=== PATIENT | female | born 1940 | race African-American/Black ===

== ENCOUNTER 2017-12-13 13:33 | Inpatient (IN) | payer OTHER, BC ==
[2017-12-13 15:38] LABS: ADD MAN DIFF? NO
[2017-12-13 15:41] LABS: ADD UMIC YES; UR ASCORBIC ACID NEGATIVE (NEGATIVE); UR BILIRUBIN (Dip) NEGATIVE (NEGATIVE); UR BLOOD (Dip) 2+ mg/dL (NEGATIVE); UR BUDDING YEAST FEW /HPF (NONE SEEN); UR CLARITY SLIGHTLY CLOUDY (CLEAR); UR COLOR AMBER (YELLOW); UR GLUCOSE (Dip) NEGATIVE (NEGATIVE); UR KETONES (Dip) NEGATIVE (NEGATIVE); UR LEUKOCYTE ESTERASE (Dip) 2+ Leu/ul (NEGATIVE); UR NITRITE (Dip) NEGATIVE (NEGATIVE); UR RBC 10 /HPF (0-5); UR SPECIFIC GRAVITY (Dip) 1.015 (1.003-1.030); UR SQUAMOUS EPITHELIAL CELL FEW /HPF (FEW); UR TOTAL PROTEIN (Dip) NEGATIVE (NEGATIVE); UR UROBILINOGEN (Dip) 1+ mg/dL (NEGATIVE); UR WBC 98 /HPF (0-5)
[2017-12-13 15:43] LABS: ABNORMAL IP MESSAGE 1; BASOPHILS % 0.3 % (0.0-2.0); EOSINOPHILS # 0.1 10^3/ul (0.0-0.5); EOSINOPHILS % 1.5 % (0.0-7.0); HEMATOCRIT 28.3 % (37.0-47.0); HEMOGLOBIN 9.3 g/dl (12.0-16.0); LYMPHOCYTES # 0.6 10^3/ul (0.8-2.9); LYMPHOCYTES % 14.8 % (15.0-51.0); MEAN CORPUSCULAR HEMOGLOBIN 33.2 pg (29.0-33.0); MEAN CORPUSCULAR HGB CONC 32.9 g/dl (32.0-37.0); MEAN CORPUSCULAR VOLUME 101.1 fl (82.0-101.0); MEAN PLATELET VOLUME 10.9 fl (7.4-10.4); MONOCYTE # 0.4 10^3/ul (0.3-0.9); MONOCYTES % 10.5 % (0.0-11.0); NEUTROPHIL # 2.8 10^3/ul (1.6-7.5); NEUTROPHILS % 71.6 % (39.0-77.0); NUCLEATED RED BLOOD CELLS # 0.2 10^3/ul (0.0-0.0); NUCLEATED RED BLOOD CELLS% 5.1 /100WBC (0.0-0.0); PLATELET COUNT 198 10^3/UL (140-415); RED CELL DISTRIBUTION WIDTH 19.7 % (11.5-14.5)
[2017-12-13 15:43] LABS: WHITE BLOOD COUNT 3.9 10^3/ul (4.8-10.8)
[2017-12-13 15:47] LABS: POSITIVE DIFF @See below
[2017-12-13 16:00] LABS: ALANINE AMINOTRANSFERASE 83 IU/L (13-69); ALBUMIN 3.4 g/dl (3.3-4.9); ALBUMIN/GLOBULIN RATIO 0.97; ALKALINE PHOSPHATASE 553 IU/L (42-121); ANION GAP 14 (8-16); ASPARTATE AMINO TRANSFERASE 148 IU/L (15-46); BILIRUBIN,INDIRECT 0.8 mg/dl (0-1.1); BILIRUBIN,TOTAL 1.5 mg/dl (0.2-1.3); BLOOD UREA NITROGEN 22 mg/dl (7-20); CALCIUM 8.8 mg/dl (8.4-10.2); CARBON DIOXIDE 22 mmol/L (21-31); CHLORIDE 103 mmol/L (97-110); CREATININE 3.23 mg/dl (0.44-1.00); GLUCOSE 89 mg/dl (70-220); LIPASE 70 U/L (23-300); POTASSIUM 4.3 mmol/L (3.5-5.1); SODIUM 135 mmol/L (135-144); TOTAL PROTEIN 6.9 g/dl (6.1-8.1)
[2017-12-13 16:12] LABS: B-TYPE NATRIURETIC PEPTIDE 680 PG/ML (0-450); TROPONIN-I < 0.010 ng/ml (0.000-0.120)
[2017-12-13 16:17] LABS: INR 1.17; PROTIME 15.1 Sec (11.9-14.9); PT RATIO 1.2
[2017-12-13 16:18] LABS: PARTIAL THROMBOPLASTIN TIME 25.5 Sec (25.0-35.0)
[2017-12-13] MEDS ORDERED: ALBUTEROL/IPRATROPIUM (NEB) 3 ML AMP HHN (16:30)
[2017-12-13] MEDS: CEFTRIAXONE 1 GM/50 ML (PMX) 50 ML IVPB (16:51)
[2017-12-13] MEDS ORDERED: LORAZEPAM 0.5 MG TAB PO (17:00)
[2017-12-13] MEDS ORDERED: NACL 0.9% 3 ML SYG IV (17:00)
[2017-12-13] MEDS ORDERED: ACETAMINOPHEN 325 MG TAB PO (17:00)
[2017-12-13] MEDS ORDERED: BISACODYL (EC) 5 MG TAB PO (17:00)
[2017-12-13] MEDS ORDERED: hydrALAzine 20 MG INJ IV (17:00)
[2017-12-13] MEDS ORDERED: morphine 2 MG INJ IV (17:00)
[2017-12-13] MEDS ORDERED: DOCUSATE SODIUM 100 MG CAP PO (17:00)
[2017-12-13] MEDS ORDERED: MAGNESIUM HYDROXIDE 30ML CUP PO (17:00)
[2017-12-13] MEDS ORDERED: HYDROCODONE/APAP (5/325) TAB PO (17:00)
[2017-12-13 17:28] LABS: ADD UMIC YES; UR ASCORBIC ACID NEGATIVE (NEGATIVE); UR BACTERIA FEW /HPF (NONE SEEN); UR BILIRUBIN (Dip) NEGATIVE (NEGATIVE); UR BLOOD (Dip) 2+ mg/dL (NEGATIVE); UR BUDDING YEAST MODERATE /HPF (NONE SEEN); UR CLARITY CLOUDY (CLEAR); UR COLOR AMBER (YELLOW); UR GLUCOSE (Dip) NEGATIVE (NEGATIVE); UR KETONES (Dip) NEGATIVE (NEGATIVE); UR LEUKOCYTE ESTERASE (Dip) 3+ Leu/ul (NEGATIVE); UR NITRITE (Dip) NEGATIVE (NEGATIVE); UR RBC 10 /HPF (0-5); UR SPECIFIC GRAVITY (Dip) 1.015 (1.003-1.030); UR SQUAMOUS EPITHELIAL CELL FEW /HPF (FEW); UR TOTAL PROTEIN (Dip) 1+ mg/dl (NEGATIVE); UR UROBILINOGEN (Dip) NEGATIVE (NEGATIVE); UR WBC 50 /HPF (0-5)
[2017-12-13] MEDS: SOD CHLORIDE 0.9% 1,000 ML IV (18:33)
[2017-12-13] MEDS: PIPER-TAZO 2.25 GM (PMX) 50 ML IVPB (18:34)
[2017-12-13] MEDS: ALBUTEROL/IPRATROPIUM (NEB) 3 ML AMP HHN (19:43)
[2017-12-13] MEDS: BUDESONIDE (NEB) 0.5MG/2ML AMP HHN (19:43)
[2017-12-13] MEDS ORDERED: traZODone 50 MG TAB PO (21:00)
[2017-12-13] MEDS ORDERED: ATORVASTATIN 10 MG TAB PO (21:00)
[2017-12-13] MEDS ORDERED: METOPROLOL 25 MG TAB PO (21:00)
[2017-12-13 21:17] LABS: FREE T4 (FREE THYROXINE) 1.16 ng/dl (0.78-2.44)
[2017-12-13] MEDS: MONTELUKAST 10 MG TAB PO (21:22)
[2017-12-13] MEDS: HEPARIN 5,000 UNIT/0.5 ML VIAL SC (21:25)
[2017-12-14] MEDS: PIPER-TAZO 2.25 GM (PMX) 50 ML IVPB ×3 (00:42→15:26)
[2017-12-14] MEDS: SOD CHLORIDE 0.9% 1,000 ML IV ×3 (02:35→22:35)
[2017-12-14 05:22] LABS: HEMATOCRIT 26.7 % (37.0-47.0); HEMOGLOBIN 8.7 g/dl (12.0-16.0); MEAN CORPUSCULAR HGB CONC 32.6 g/dl (32.0-37.0); MEAN CORPUSCULAR VOLUME 101.1 fl (82.0-101.0); MEAN PLATELET VOLUME 11.1 fl (7.4-10.4); NUCLEATED RED BLOOD CELLS% 6.3 /100WBC (0.0-0.0); PLATELET COUNT 172 10^3/UL (140-415); RED BLOOD COUNT 2.64 10^6/ul (4.20-5.40); RED CELL DISTRIBUTION WIDTH 19.7 % (11.5-14.5)
[2017-12-14 05:22] LABS: WHITE BLOOD COUNT 3.8 10^3/ul (4.8-10.8)
[2017-12-14 05:28] LABS: POSITIVE DIFF @See below
[2017-12-14 05:29] LABS: ADD MAN DIFF? YES
[2017-12-14 05:35] LABS: HEMOGLOBIN A1C 5.1 % (0-5.9)
[2017-12-14 05:49] LABS: ALANINE AMINOTRANSFERASE 77 IU/L (13-69); ALBUMIN 3.2 g/dl (3.3-4.9); ALKALINE PHOSPHATASE 495 IU/L (42-121); ANION GAP 14 (8-16); ASPARTATE AMINO TRANSFERASE 133 IU/L (15-46); BILIRUBIN,INDIRECT 0.7 mg/dl (0-1.1); BILIRUBIN,TOTAL 1.3 mg/dl (0.2-1.3); BLOOD UREA NITROGEN 23 mg/dl (7-20); CALCIUM 8.4 mg/dl (8.4-10.2); CARBON DIOXIDE 20 mmol/L (21-31); CHLORIDE 106 mmol/L (97-110); CHOL/HDL RATIO 4.2 RATIO; CHOLESTEROL 269 mg/dl (100-200); CREATININE 3.46 mg/dl (0.44-1.00); GLUCOSE 84 mg/dl (70-220); HDL CHOLESTEROL 64 mg/dl (33-92); LDL CHOLESTEROL,CALCULATED 185 mg/dl; MAGNESIUM 2.1 mg/dl (1.7-2.5); POTASSIUM 4.3 mmol/L (3.5-5.1); SODIUM 136 mmol/L (135-144); TOTAL PROTEIN 6.4 g/dl (6.1-8.1); TRIGLYCERIDES 101 mg/dl (0-149)
[2017-12-14] MEDS: PANTOPRAZOLE (EC) 40 MG TAB PO (06:00)
[2017-12-14] MEDS: BUDESONIDE (NEB) 0.5MG/2ML AMP HHN ×2 (08:10→19:45)
[2017-12-14] MEDS: ALBUTEROL/IPRATROPIUM (NEB) 3 ML AMP HHN ×3 (08:10→19:45)
[2017-12-14] MEDS ORDERED: SERTRALINE 100 MG TAB PO (09:00)
[2017-12-14] MEDS: AMLODIPINE 5 MG TAB PO (09:00)
[2017-12-14] MEDS ORDERED: AMLODIPINE 10 MG TAB PO ×2 (09:00)
[2017-12-14] MEDS: HEPARIN 5,000 UNIT/0.5 ML VIAL SC ×2 (09:04→20:58)
[2017-12-14] MEDS: ASPIRIN (EC) 81 MG TAB PO (09:07)
[2017-12-14 09:27] LABS: ANISOCYTOSIS 3+ (0-0); BAND NEUTROPHILS #M 0.7 10^3/ul (0.0-0.6); BAND NEUTROPHILS % (M) 20 % (0-4); EOSINOPHILS % (M) 3 % (0-7); ERYTHROBLAST% (NRBC) (M) 10 % (0-0); GIANT THROMBO% (M) 6 % (0-0); LYMPHOCYTES #M 0.7 10^3/ul (0.8-2.9); LYMPHOCYTES % (M) 20 % (15-51); MONOCYTE #M 0.3 10^3/ul (0.3-0.9); MONOCYTES % (M) 9 % (0-11); PLATELET ESTIMATE NORMAL; SEG NEUT #M 1.9 10^3/ul (1.6-7.5); SEGMENTED NEUTROPHILS (M) % 48 % (39-77); SMUDGE%M 10 % (0-0)
[2017-12-14] MEDS: ANASTROZOLE 1 MG TAB PO (10:02)
[2017-12-14] MEDS: LETROZOLE 2.5 MG TAB PO (10:02)
[2017-12-14] MEDS: MONTELUKAST 10 MG TAB PO (20:54)
[2017-12-14] MEDS: CEFTRIAXONE 1 GM/50 ML (PMX) 50 ML IVPB (21:10)
[2017-12-15] MEDS: SOD CHLORIDE 0.9% 1,000 ML IV ×4 (02:49→23:24)
[2017-12-15 05:31] LABS: ADD MAN DIFF? NO
[2017-12-15 05:37] LABS: WHITE BLOOD COUNT 4.2 10^3/ul (4.8-10.8)
[2017-12-15 05:37] LABS: BASOPHILS % 0.2 % (0.0-2.0); EOSINOPHILS # 0.1 10^3/ul (0.0-0.5); EOSINOPHILS % 1.9 % (0.0-7.0); HEMATOCRIT 24.1 % (37.0-47.0); HEMOGLOBIN 8.1 g/dl (12.0-16.0); LYMPHOCYTES # 0.8 10^3/ul (0.8-2.9); LYMPHOCYTES % 17.7 % (15.0-51.0); MEAN CORPUSCULAR HEMOGLOBIN 33.5 pg (29.0-33.0); MEAN CORPUSCULAR HGB CONC 33.6 g/dl (32.0-37.0); MEAN CORPUSCULAR VOLUME 99.6 fl (82.0-101.0); MEAN PLATELET VOLUME 11.2 fl (7.4-10.4); MONOCYTE # 0.5 10^3/ul (0.3-0.9); MONOCYTES % 12.3 % (0.0-11.0); NEUTROPHIL # 2.8 10^3/ul (1.6-7.5); NEUTROPHILS % 66.5 % (39.0-77.0); NUCLEATED RED BLOOD CELLS # 0.3 10^3/ul (0.0-0.0); NUCLEATED RED BLOOD CELLS% 6.1 /100WBC (0.0-0.0); PLATELET COUNT 170 10^3/UL (140-415); RED BLOOD COUNT 2.42 10^6/ul (4.20-5.40); RED CELL DISTRIBUTION WIDTH 19.2 % (11.5-14.5)
[2017-12-15] MEDS: PANTOPRAZOLE (EC) 40 MG TAB PO (06:00)
[2017-12-15 06:03] LABS: ALANINE AMINOTRANSFERASE 65 IU/L (13-69); ALBUMIN 2.9 g/dl (3.3-4.9); ALBUMIN/GLOBULIN RATIO 0.93; ALKALINE PHOSPHATASE 457 IU/L (42-121); ANION GAP 11 (8-16); ASPARTATE AMINO TRANSFERASE 102 IU/L (15-46); BILIRUBIN,INDIRECT 0.6 mg/dl (0-1.1); BILIRUBIN,TOTAL 0.7 mg/dl (0.2-1.3); BLOOD UREA NITROGEN 23 mg/dl (7-20); CARBON DIOXIDE 22 mmol/L (21-31); CHLORIDE 107 mmol/L (97-110); CREATININE 3.03 mg/dl (0.44-1.00); GLUCOSE 122 mg/dl (70-220); SODIUM 136 mmol/L (135-144)
[2017-12-15] MEDS: LEVOTHYROXINE 100 MCG TAB PO (07:00)
[2017-12-15 07:27] LABS: PHOSPHORUS 3.8 mg/dl (2.5-4.9)
[2017-12-15] MEDS: ALBUTEROL/IPRATROPIUM (NEB) 3 ML AMP HHN ×3 (08:00→19:54)
[2017-12-15] MEDS: BUDESONIDE (NEB) 0.5MG/2ML AMP HHN ×2 (08:07→19:54)
[2017-12-15] MEDS: AMLODIPINE 5 MG TAB PO (09:00)
[2017-12-15] MEDS: ASPIRIN (EC) 81 MG TAB PO (10:11)
[2017-12-15] MEDS: FUROSEMIDE 40 MG INJ IV (10:11)
[2017-12-15] MEDS: ONDANSETRON 4 MG INJ IV (10:11)
[2017-12-15] MEDS: LETROZOLE 2.5 MG TAB PO (10:12)
[2017-12-15] MEDS: ANASTROZOLE 1 MG TAB PO (10:13)
[2017-12-15] MEDS: HEPARIN 5,000 UNIT/0.5 ML VIAL SC ×2 (10:13→21:08)
[2017-12-15] MEDS: FLUCONAZOLE 200 MG (PMX) 100 ML IVPB (13:38)
[2017-12-15] MEDS ORDERED: morphine LIQ (10 MG/5 ML) CUP PO (18:30)
[2017-12-15] MEDS: MONTELUKAST 10 MG TAB PO (21:00)
[2017-12-15] MEDS: CEFTRIAXONE 1 GM/50 ML (PMX) 50 ML IVPB (21:09)
[2017-12-16] MEDS: PANTOPRAZOLE (EC) 40 MG TAB PO (05:05)
[2017-12-16 05:33] LABS: ADD MAN DIFF? NO
[2017-12-16 05:38] LABS: WHITE BLOOD COUNT 4.6 10^3/ul (4.8-10.8)
[2017-12-16 05:38] LABS: BASOPHILS % 0.4 % (0.0-2.0); EOSINOPHILS # 0.1 10^3/ul (0.0-0.5); HEMATOCRIT 26.7 % (37.0-47.0); LYMPHOCYTES % 21.9 % (15.0-51.0); MEAN CORPUSCULAR HEMOGLOBIN 33.3 pg (29.0-33.0); MEAN CORPUSCULAR HGB CONC 33.7 g/dl (32.0-37.0); MEAN CORPUSCULAR VOLUME 98.9 fl (82.0-101.0); MEAN PLATELET VOLUME 11.2 fl (7.4-10.4); MONOCYTE # 0.5 10^3/ul (0.3-0.9); MONOCYTES % 9.8 % (0.0-11.0); NEUTROPHIL # 2.9 10^3/ul (1.6-7.5); NEUTROPHILS % 63.3 % (39.0-77.0); NUCLEATED RED BLOOD CELLS # 0.3 10^3/ul (0.0-0.0); NUCLEATED RED BLOOD CELLS% 6.3 /100WBC (0.0-0.0); PLATELET COUNT 168 10^3/UL (140-415); RED CELL DISTRIBUTION WIDTH 19.4 % (11.5-14.5)
[2017-12-16 06:03] LABS: ALANINE AMINOTRANSFERASE 60 IU/L (13-69); ALBUMIN 2.9 g/dl (3.3-4.9); ALBUMIN/GLOBULIN RATIO 0.87; ALKALINE PHOSPHATASE 472 IU/L (42-121); ANION GAP 14 (8-16); ASPARTATE AMINO TRANSFERASE 95 IU/L (15-46); BILIRUBIN,INDIRECT 0.6 mg/dl (0-1.1); BILIRUBIN,TOTAL 0.6 mg/dl (0.2-1.3); BLOOD UREA NITROGEN 21 mg/dl (7-20); CALCIUM 8.3 mg/dl (8.4-10.2); CARBON DIOXIDE 22 mmol/L (21-31); CHLORIDE 107 mmol/L (97-110); GLUCOSE 102 mg/dl (70-220); MAGNESIUM 1.8 mg/dl (1.7-2.5); POTASSIUM 3.9 mmol/L (3.5-5.1); SODIUM 139 mmol/L (135-144); TOTAL PROTEIN 6.2 g/dl (6.1-8.1)
[2017-12-16] MEDS: LEVOTHYROXINE 100 MCG TAB PO (06:56)
[2017-12-16] MEDS ORDERED: LIDOCAINE 2% (SDV) 5 ML INJ (07:00)
[2017-12-16] MEDS: ALBUTEROL/IPRATROPIUM (NEB) 3 ML AMP HHN ×3 (08:00→19:27)
[2017-12-16] MEDS: BUDESONIDE (NEB) 0.5MG/2ML AMP HHN ×2 (08:05→19:27)
[2017-12-16] MEDS: ASPIRIN (EC) 81 MG TAB PO ×2 (10:26→10:34)
[2017-12-16] MEDS: LETROZOLE 2.5 MG TAB PO (10:27)
[2017-12-16] MEDS: ANASTROZOLE 1 MG TAB PO (10:27)
[2017-12-16] MEDS: AMLODIPINE 5 MG TAB PO (10:28)
[2017-12-16] MEDS: HEPARIN 5,000 UNIT/0.5 ML VIAL SC ×2 (10:28→20:47)
[2017-12-16] MEDS: SOD CHLORIDE 0.9% 1,000 ML IV (12:55)
[2017-12-16] MEDS: MONTELUKAST 10 MG TAB PO ×2 (20:46→20:55)
[2017-12-16] MEDS: CEFTRIAXONE 1 GM/50 ML (PMX) 50 ML IVPB (20:46)
[2017-12-16] MEDS: ONDANSETRON 4 MG INJ IV (20:51)
[2017-12-16] MEDS: morphine 2 MG INJ IV (21:29)
[2017-12-17] MEDS: SOD CHLORIDE 0.9% 1,000 ML IV ×2 (00:33→09:39)
[2017-12-17] MEDS: PANTOPRAZOLE (EC) 40 MG TAB PO (06:21)
[2017-12-17] MEDS: LEVOTHYROXINE 100 MCG TAB PO (06:21)
[2017-12-17 06:51] LABS: ADD MAN DIFF? NO
[2017-12-17 07:02] LABS: BASOPHILS % 0.4 % (0.0-2.0); EOSINOPHILS # 0.1 10^3/ul (0.0-0.5); EOSINOPHILS % 1.6 % (0.0-7.0); HEMATOCRIT 25.5 % (37.0-47.0); HEMOGLOBIN 8.5 g/dl (12.0-16.0); LYMPHOCYTES % 19.6 % (15.0-51.0); MEAN CORPUSCULAR HEMOGLOBIN 33.1 pg (29.0-33.0); MEAN CORPUSCULAR HGB CONC 33.3 g/dl (32.0-37.0); MEAN CORPUSCULAR VOLUME 99.2 fl (82.0-101.0); MEAN PLATELET VOLUME 10.7 fl (7.4-10.4); MONOCYTE # 0.5 10^3/ul (0.3-0.9); MONOCYTES % 9.5 % (0.0-11.0); NEUTROPHIL # 3.2 10^3/ul (1.6-7.5); NEUTROPHILS % 64.3 % (39.0-77.0); NUCLEATED RED BLOOD CELLS # 0.2 10^3/ul (0.0-0.0); NUCLEATED RED BLOOD CELLS% 3.8 /100WBC (0.0-0.0); PLATELET COUNT 152 10^3/UL (140-415); RED BLOOD COUNT 2.57 10^6/ul (4.20-5.40); RED CELL DISTRIBUTION WIDTH 19.7 % (11.5-14.5)
[2017-12-17 07:20] LABS: ALANINE AMINOTRANSFERASE 47 IU/L (13-69); ALBUMIN 2.7 g/dl (3.3-4.9); ALBUMIN/GLOBULIN RATIO 0.84; ASPARTATE AMINO TRANSFERASE 71 IU/L (15-46); BILIRUBIN,INDIRECT 0.3 mg/dl (0-1.1); BILIRUBIN,TOTAL 0.3 mg/dl (0.2-1.3); CALCIUM 8.3 mg/dl (8.4-10.2); CARBON DIOXIDE 23 mmol/L (21-31); GLUCOSE 116 mg/dl (70-220); MAGNESIUM 1.7 mg/dl (1.7-2.5); POTASSIUM 3.8 mmol/L (3.5-5.1); SODIUM 138 mmol/L (135-144); TOTAL PROTEIN 5.9 g/dl (6.1-8.1)
[2017-12-17] MEDS: ALBUTEROL/IPRATROPIUM (NEB) 3 ML AMP HHN ×3 (08:00→19:16)
[2017-12-17] MEDS: BUDESONIDE (NEB) 0.5MG/2ML AMP HHN ×2 (08:04→19:17)
[2017-12-17 08:11] LABS: ALKALINE PHOSPHATASE 406 IU/L (42-121); ANION GAP 8 (8-16); BLOOD UREA NITROGEN 19 mg/dl (7-20); CHLORIDE 111 mmol/L (97-110)
[2017-12-17] MEDS: ASPIRIN (EC) 81 MG TAB PO ×2 (09:00→09:40)
[2017-12-17] MEDS: AMLODIPINE 5 MG TAB PO (09:40)
[2017-12-17] MEDS: HEPARIN 5,000 UNIT/0.5 ML VIAL SC ×2 (09:44→21:52)
[2017-12-17] MEDS: LETROZOLE 2.5 MG TAB PO (09:45)
[2017-12-17] MEDS: ANASTROZOLE 1 MG TAB PO (09:46)
[2017-12-17] MEDS: POTASSIUM CHLORIDE (SR) 20 MEQ TAB PO (11:44)
[2017-12-17] MEDS: FLUCONAZOLE 200 MG (PMX) 100 ML IVPB (11:44)
[2017-12-17] MEDS: MONTELUKAST 10 MG TAB PO ×2 (21:50→22:05)
[2017-12-17] MEDS: CEFTRIAXONE 1 GM/50 ML (PMX) 50 ML IVPB (21:50)
[2017-12-17] MEDS ORDERED: morphine LIQ (10 MG/5 ML) CUP PO (22:00)
[2017-12-17] MEDS: morphine 2 MG INJ IV (22:26)
[2017-12-17] MEDS: ONDANSETRON 4 MG INJ IV (22:31)
[2017-12-18] MEDS: SOD CHLORIDE 0.9% 1,000 ML IV ×4 (00:42→22:51)
[2017-12-18 06:10] LABS: ABNORMAL IP MESSAGE 1; HEMATOCRIT 28.3 % (37.0-47.0); HEMOGLOBIN 9.4 g/dl (12.0-16.0); MEAN CORPUSCULAR HEMOGLOBIN 33.1 pg (29.0-33.0); MEAN CORPUSCULAR HGB CONC 33.2 g/dl (32.0-37.0); MEAN CORPUSCULAR VOLUME 99.6 fl (82.0-101.0); MEAN PLATELET VOLUME 11.1 fl (7.4-10.4); NUCLEATED RED BLOOD CELLS% 5.2 /100WBC (0.0-0.0); PLATELET COUNT 166 10^3/UL (140-415); POSITIVE DIFF @See below; RED BLOOD COUNT 2.84 10^6/ul (4.20-5.40); RED CELL DISTRIBUTION WIDTH 19.9 % (11.5-14.5)
[2017-12-18 06:10] LABS: WHITE BLOOD COUNT 5.2 10^3/ul (4.8-10.8)
[2017-12-18 06:11] LABS: ADD MAN DIFF? YES
[2017-12-18] MEDS: PANTOPRAZOLE (EC) 40 MG TAB PO (06:16)
[2017-12-18] MEDS: LEVOTHYROXINE 100 MCG TAB PO (06:16)
[2017-12-18 06:31] LABS: ALANINE AMINOTRANSFERASE 54 IU/L (13-69); ALBUMIN 3.1 g/dl (3.3-4.9); ALBUMIN/GLOBULIN RATIO 0.93; ALKALINE PHOSPHATASE 471 IU/L (42-121); ANION GAP 9 (8-16); ASPARTATE AMINO TRANSFERASE 80 IU/L (15-46); BILIRUBIN,INDIRECT 0.5 mg/dl (0-1.1); BILIRUBIN,TOTAL 0.5 mg/dl (0.2-1.3); BLOOD UREA NITROGEN 16 mg/dl (7-20); CALCIUM 8.5 mg/dl (8.4-10.2); CARBON DIOXIDE 22 mmol/L (21-31); CHLORIDE 112 mmol/L (97-110); CREATININE 1.29 mg/dl (0.44-1.00); GLUCOSE 95 mg/dl (70-220); MAGNESIUM 1.7 mg/dl (1.7-2.5); POTASSIUM 4.1 mmol/L (3.5-5.1); SODIUM 139 mmol/L (135-144); TOTAL PROTEIN 6.4 g/dl (6.1-8.1)
[2017-12-18 07:22] LABS: ANISOCYTOSIS 3+ (0-0); BAND NEUTROPHILS #M 0.3 10^3/ul (0.0-0.6); BAND NEUTROPHILS % (M) 6 % (0-4); BASOPHILS % (M) 1 % (0-2); EOSINOPHILS % (M) 5 % (0-7); ERYTHROBLAST% (NRBC) (M) 7 % (0-0); GIANT THROMBO% (M) 1 % (0-0); LYMPHOCYTES #M 0.8 10^3/ul (0.8-2.9); LYMPHOCYTES % (M) 17 % (15-51); METAMYELOCYTES #M 0.4 10^3/ul (0.0-0.0); METAMYELOCYTES %M 8 % (0-0); MONOCYTE #M 0.2 10^3/ul (0.3-0.9); MONOCYTES % (M) 5 % (0-11); MYELOCYTES % (M) 1 % (0-0); PLATELET ESTIMATE NORMAL; POIKILOCYTOSIS 1+ (0-0); REACTIVE LYMPHOCYTES% (M) 1 % (0-0); SEG NEUT #M 2.9 10^3/ul (1.6-7.5); SEGMENTED NEUTROPHILS (M) % 56 % (39-77); SMUDGE%M 36 % (0-0); SPHEROCYTES 1+ (0-0); TARGET CELLS 2+ (0-0)
[2017-12-18] MEDS: ALBUTEROL/IPRATROPIUM (NEB) 3 ML AMP HHN ×3 (08:00→19:43)
[2017-12-18] MEDS: BUDESONIDE (NEB) 0.5MG/2ML AMP HHN ×2 (08:14→19:43)
[2017-12-18] MEDS: ASPIRIN (EC) 81 MG TAB PO ×2 (09:00→09:41)
[2017-12-18] MEDS: AMLODIPINE 5 MG TAB PO (09:42)
[2017-12-18] MEDS: HEPARIN 5,000 UNIT/0.5 ML VIAL SC ×2 (09:43→21:29)
[2017-12-18] MEDS: ANASTROZOLE 1 MG TAB PO (09:47)
[2017-12-18] MEDS: LETROZOLE 2.5 MG TAB PO (09:47)
[2017-12-18] MEDS: METOCLOPRAMIDE 10 MG TAB PO ×3 (12:50→21:28)
[2017-12-18] MEDS: BALSAM PERU/CASTOR OIL 60 GM TUBE TOP (14:18)
[2017-12-18] MEDS: FLUCONAZOLE 200 MG TAB PO (16:45)
[2017-12-18 18:41] LABS: ALKALINE PHOSPHATASE 436 U/L (33-130); BONE ISOENZYMES 56 % (28-66); INTESTINAL ISOENZYMES 0 % (1-24); LIVER ISOENZYMES 44 % (25-69); PLACENTAL ISOENZYMES 0 % (0)
[2017-12-18] MEDS: MONTELUKAST 10 MG TAB PO (21:00)
[2017-12-18] MEDS ORDERED: morphine LIQ (10 MG/5 ML) CUP PO (22:00)
[2017-12-19] MEDS: METOCLOPRAMIDE 10 MG TAB PO ×2 (06:23→17:01)
[2017-12-19] MEDS: LEVOTHYROXINE 100 MCG TAB PO (06:23)
[2017-12-19] MEDS: PANTOPRAZOLE (EC) 40 MG TAB PO (06:23)
[2017-12-19] MEDS: ALBUTEROL/IPRATROPIUM (NEB) 3 ML AMP HHN ×3 (08:00→20:00)
[2017-12-19] MEDS: BUDESONIDE (NEB) 0.5MG/2ML AMP HHN ×2 (08:21→20:00)
[2017-12-19] MEDS: ANASTROZOLE 1 MG TAB PO (09:05)
[2017-12-19] MEDS: HEPARIN 5,000 UNIT/0.5 ML VIAL SC ×2 (09:06→21:02)
[2017-12-19] MEDS: LETROZOLE 2.5 MG TAB PO (09:06)
[2017-12-19] MEDS: ASPIRIN (EC) 81 MG TAB PO (09:07)
[2017-12-19] MEDS: PROPOFOL 40 ML (09:07)
[2017-12-19] MEDS: AMLODIPINE 5 MG TAB PO (09:07)
[2017-12-19] MEDS: BALSAM PERU/CASTOR OIL 60 GM TUBE TOP (09:07)
[2017-12-19] MEDS: FLUCONAZOLE 200 MG TAB PO (09:07)
[2017-12-19] MEDS: SOD CHLORIDE 0.9% 1,000 ML IV (12:57)
[2017-12-19] MEDS: HYDROmorphONE 0.5 MG/0.5 ML SYG IV (14:22)
[2017-12-19 14:59] LABS: UR BACTERIA FEW /HPF (NONE SEEN); UR NONSQUAMOUS EPITHELIAL CELL 6 /HPF (NONE SEEN); UR RBC 19 /HPF (0-5); UR SQUAMOUS EPITHELIAL CELL MODERATE /HPF (FEW); UR WBC > 182 /HPF (0-5)
[2017-12-19 15:24] LABS: ADD UMIC YES; UR ASCORBIC ACID NEGATIVE (NEGATIVE); UR BILIRUBIN (Dip) NEGATIVE (NEGATIVE); UR BLOOD (Dip) 2+ mg/dL (NEGATIVE); UR BUDDING YEAST FEW /HPF (NONE SEEN); UR CLARITY CLOUDY (CLEAR); UR COLOR YELLOW (YELLOW); UR GLUCOSE (Dip) NEGATIVE (NEGATIVE); UR KETONES (Dip) TRACE mg/dL (NEGATIVE); UR LEUKOCYTE ESTERASE (Dip) 3+ Leu/ul (NEGATIVE); UR NITRITE (Dip) NEGATIVE (NEGATIVE); UR SPECIFIC GRAVITY (Dip) 1.009 (1.003-1.030); UR TOTAL PROTEIN (Dip) NEGATIVE (NEGATIVE); UR TRANSITIONAL EPI CELL FEW /HPF (NONE SEEN); UR UROBILINOGEN (Dip) NEGATIVE (NEGATIVE)
[2017-12-19] MEDS: SUCRALFATE (100 MG/ML) 10ML CUP PO ×2 (17:01→21:01)
[2017-12-19] MEDS: MONTELUKAST 10 MG TAB PO (21:00)
[2017-12-20] MEDS: SOD CHLORIDE 0.9% 1,000 ML IV (02:45)
[2017-12-20 05:29] LABS: ADD MAN DIFF? NO
[2017-12-20 05:37] LABS: WHITE BLOOD COUNT 4.8 10^3/ul (4.8-10.8)
[2017-12-20 05:37] LABS: ABNORMAL IP MESSAGE 1; BASOPHILS % 0.4 % (0.0-2.0); EOSINOPHILS # 0.1 10^3/ul (0.0-0.5); EOSINOPHILS % 1.9 % (0.0-7.0); HEMATOCRIT 25.6 % (37.0-47.0); HEMOGLOBIN 8.6 g/dl (12.0-16.0); LYMPHOCYTES # 1.2 10^3/ul (0.8-2.9); LYMPHOCYTES % 24.1 % (15.0-51.0); MEAN CORPUSCULAR HGB CONC 33.6 g/dl (32.0-37.0); MEAN CORPUSCULAR VOLUME 98.1 fl (82.0-101.0); MEAN PLATELET VOLUME 11.9 fl (7.4-10.4); MONOCYTE # 0.6 10^3/ul (0.3-0.9); MONOCYTES % 11.8 % (0.0-11.0); NEUTROPHIL # 2.7 10^3/ul (1.6-7.5); NEUTROPHILS % 55.8 % (39.0-77.0); NUCLEATED RED BLOOD CELLS # 0.1 10^3/ul (0.0-0.0); NUCLEATED RED BLOOD CELLS% 2.3 /100WBC (0.0-0.0); PLATELET COUNT 155 10^3/UL (140-415); RED BLOOD COUNT 2.61 10^6/ul (4.20-5.40); RED CELL DISTRIBUTION WIDTH 19.6 % (11.5-14.5)
[2017-12-20 05:50] LABS: POSITIVE DIFF @See below
[2017-12-20 05:57] LABS: ALANINE AMINOTRANSFERASE 45 IU/L (13-69); ALBUMIN 2.7 g/dl (3.3-4.9); ALBUMIN/GLOBULIN RATIO 0.81; ALKALINE PHOSPHATASE 421 IU/L (42-121); ANION GAP 11 (8-16); ASPARTATE AMINO TRANSFERASE 92 IU/L (15-46); BILIRUBIN,INDIRECT 0.5 mg/dl (0-1.1); BILIRUBIN,TOTAL 0.5 mg/dl (0.2-1.3); BLOOD UREA NITROGEN 10 mg/dl (7-20); CALCIUM 8.3 mg/dl (8.4-10.2); CARBON DIOXIDE 21 mmol/L (21-31); CHLORIDE 113 mmol/L (97-110); CREATININE 0.85 mg/dl (0.44-1.00); GLUCOSE 84 mg/dl (70-220); MAGNESIUM 1.5 mg/dl (1.7-2.5); POTASSIUM 3.8 mmol/L (3.5-5.1); SODIUM 141 mmol/L (135-144)
[2017-12-20] MEDS: LEVOTHYROXINE 100 MCG TAB PO (06:06)
[2017-12-20] MEDS: PANTOPRAZOLE (EC) 40 MG TAB PO (06:06)
[2017-12-20] MEDS: ALBUTEROL/IPRATROPIUM (NEB) 3 ML AMP HHN ×3 (07:38→20:00)
[2017-12-20] MEDS: SUCRALFATE (100 MG/ML) 10ML CUP PO ×5 (08:58→21:00)
[2017-12-20] MEDS: FLUCONAZOLE 200 MG TAB PO (08:58)
[2017-12-20] MEDS: ASPIRIN (EC) 81 MG TAB PO ×2 (08:58→09:00)
[2017-12-20] MEDS: AMLODIPINE 5 MG TAB PO (08:58)
[2017-12-20] MEDS: METOCLOPRAMIDE 10 MG TAB PO ×2 (08:58→11:30)
[2017-12-20] MEDS: ANASTROZOLE 1 MG TAB PO (08:59)
[2017-12-20] MEDS: HEPARIN 5,000 UNIT/0.5 ML VIAL SC ×2 (09:00→22:06)
[2017-12-20] MEDS: BUDESONIDE (NEB) 0.5MG/2ML AMP HHN ×2 (09:00→20:00)
[2017-12-20] MEDS: LETROZOLE 2.5 MG TAB PO (09:01)
[2017-12-20] MEDS: BALSAM PERU/CASTOR OIL 60 GM TUBE TOP (09:01)
[2017-12-20] MEDS: MAGNESIUM SULFATE 2 GM/50 ML 50 ML IVPB (12:01)
[2017-12-20] MEDS: METOCLOPRAMIDE 5 MG TAB PO (17:35)
[2017-12-20] MEDS: MAGNESIUM OXIDE 400 MG TAB PO (17:49)
[2017-12-20] MEDS: HARD FAT/PHENYLEPHRINE SUPP PR (17:53)
[2017-12-20] MEDS: ONDANSETRON 4 MG INJ IV (18:20)
[2017-12-20] MEDS ORDERED: LACTOBACILLUS RHAMNOSUS CAP (19:55)
[2017-12-20] MEDS: HYDROmorphONE 0.5 MG/0.5 ML SYG IV (20:31)
[2017-12-20] MEDS: MONTELUKAST 10 MG TAB PO (22:05)
[2017-12-20] MEDS: LACTOBACILLUS RHAMNOSUS CAP PO (22:05)
[2017-12-21 05:48] LABS: WHITE BLOOD COUNT 4.9 10^3/ul (4.8-10.8)
[2017-12-21 05:48] LABS: ADD MAN DIFF? NO; BASOPHILS % 0.2 % (0.0-2.0); EOSINOPHILS % 0.8 % (0.0-7.0); HEMATOCRIT 24.8 % (37.0-47.0); HEMOGLOBIN 8.3 g/dl (12.0-16.0); LYMPHOCYTES # 1.1 10^3/ul (0.8-2.9); LYMPHOCYTES % 23.3 % (15.0-51.0); MEAN CORPUSCULAR HEMOGLOBIN 33.1 pg (29.0-33.0); MEAN CORPUSCULAR HGB CONC 33.5 g/dl (32.0-37.0); MEAN CORPUSCULAR VOLUME 98.8 fl (82.0-101.0); MEAN PLATELET VOLUME 11.8 fl (7.4-10.4); MONOCYTE # 0.6 10^3/ul (0.3-0.9); MONOCYTES % 12.6 % (0.0-11.0); NEUTROPHIL # 2.8 10^3/ul (1.6-7.5); NEUTROPHILS % 58.4 % (39.0-77.0); NUCLEATED RED BLOOD CELLS # 0.1 10^3/ul (0.0-0.0); NUCLEATED RED BLOOD CELLS% 1.2 /100WBC (0.0-0.0); PLATELET COUNT 159 10^3/UL (140-415); RED BLOOD COUNT 2.51 10^6/ul (4.20-5.40); RED CELL DISTRIBUTION WIDTH 19.6 % (11.5-14.5)
[2017-12-21] MEDS: LEVOTHYROXINE 100 MCG TAB PO (06:21)
[2017-12-21] MEDS: PANTOPRAZOLE (EC) 40 MG TAB PO (06:21)
[2017-12-21 06:34] LABS: ALANINE AMINOTRANSFERASE 44 IU/L (13-69); ALBUMIN 2.7 g/dl (3.3-4.9); ALBUMIN/GLOBULIN RATIO 0.87; ALKALINE PHOSPHATASE 450 IU/L (42-121); ANION GAP 7 (8-16); ASPARTATE AMINO TRANSFERASE 80 IU/L (15-46); BILIRUBIN,INDIRECT 0.4 mg/dl (0-1.1); BILIRUBIN,TOTAL 0.4 mg/dl (0.2-1.3); BLOOD UREA NITROGEN 8 mg/dl (7-20); CALCIUM 8.4 mg/dl (8.4-10.2); CARBON DIOXIDE 22 mmol/L (21-31); CHLORIDE 115 mmol/L (97-110); CREATININE 0.76 mg/dl (0.44-1.00); GLUCOSE 83 mg/dl (70-220); MAGNESIUM 1.9 mg/dl (1.7-2.5); POTASSIUM 3.7 mmol/L (3.5-5.1); SODIUM 140 mmol/L (135-144); TOTAL PROTEIN 5.8 g/dl (6.1-8.1)
[2017-12-21] MEDS: METOCLOPRAMIDE 5 MG TAB PO ×2 (07:30→17:31)
[2017-12-21] MEDS: ALBUTEROL/IPRATROPIUM (NEB) 3 ML AMP HHN ×3 (07:51→19:25)
[2017-12-21] MEDS: BUDESONIDE (NEB) 0.5MG/2ML AMP HHN ×2 (07:51→19:25)
[2017-12-21] MEDS: LACTOBACILLUS RHAMNOSUS CAP PO ×2 (09:33→21:35)
[2017-12-21] MEDS: FLUCONAZOLE 200 MG TAB PO (09:33)
[2017-12-21] MEDS: SUCRALFATE (100 MG/ML) 10ML CUP PO ×4 (09:33→21:00)
[2017-12-21] MEDS: AMLODIPINE 5 MG TAB PO (09:34)
[2017-12-21] MEDS: ASPIRIN (EC) 81 MG TAB PO (09:35)
[2017-12-21] MEDS: HEPARIN 5,000 UNIT/0.5 ML VIAL SC ×2 (09:35→21:36)
[2017-12-21] MEDS: BALSAM PERU/CASTOR OIL 60 GM TUBE TOP ×2 (09:36→21:41)
[2017-12-21] MEDS: ANASTROZOLE 1 MG TAB PO (09:41)
[2017-12-21] MEDS: LETROZOLE 2.5 MG TAB PO (09:42)
[2017-12-21] MEDS: HARD FAT/PHENYLEPHRINE SUPP PR (15:39)
[2017-12-21] MEDS: MONTELUKAST 10 MG TAB PO (21:35)
[2017-12-21] MEDS: HYDROmorphONE 0.5 MG/0.5 ML SYG IV (21:46)
[2017-12-22] MEDS: PANTOPRAZOLE (EC) 40 MG TAB PO (06:00)
[2017-12-22] MEDS: LEVOTHYROXINE 100 MCG TAB PO (06:25)
[2017-12-22 06:34] LABS: ADD MAN DIFF? NO
[2017-12-22 06:43] LABS: BASOPHILS % 0.4 % (0.0-2.0); EOSINOPHILS # 0.1 10^3/ul (0.0-0.5); EOSINOPHILS % 1.5 % (0.0-7.0); HEMATOCRIT 27.2 % (37.0-47.0); HEMOGLOBIN 8.8 g/dl (12.0-16.0); LYMPHOCYTES # 1.3 10^3/ul (0.8-2.9); LYMPHOCYTES % 29.6 % (15.0-51.0); MEAN CORPUSCULAR HEMOGLOBIN 32.2 pg (29.0-33.0); MEAN CORPUSCULAR HGB CONC 32.4 g/dl (32.0-37.0); MEAN CORPUSCULAR VOLUME 99.6 fl (82.0-101.0); MONOCYTE # 0.6 10^3/ul (0.3-0.9); MONOCYTES % 12.2 % (0.0-11.0); NEUTROPHIL # 2.3 10^3/ul (1.6-7.5); NEUTROPHILS % 51.9 % (39.0-77.0); NUCLEATED RED BLOOD CELLS # 0.1 10^3/ul (0.0-0.0); NUCLEATED RED BLOOD CELLS% 1.1 /100WBC (0.0-0.0); PLATELET COUNT 186 10^3/UL (140-415); RED BLOOD COUNT 2.73 10^6/ul (4.20-5.40); RED CELL DISTRIBUTION WIDTH 19.9 % (11.5-14.5)
[2017-12-22 06:43] LABS: WHITE BLOOD COUNT 4.5 10^3/ul (4.8-10.8)
[2017-12-22 07:03] LABS: ALBUMIN 2.9 g/dl (3.3-4.9); ANION GAP 10 (8-16); BLOOD UREA NITROGEN 8 mg/dl (7-20); CALCIUM 8.5 mg/dl (8.4-10.2); CARBON DIOXIDE 22 mmol/L (21-31); CHLORIDE 111 mmol/L (97-110); CREATININE 0.82 mg/dl (0.44-1.00); GLUCOSE 85 mg/dl (70-220); MAGNESIUM 1.9 mg/dl (1.7-2.5); PHOSPHORUS 2.7 mg/dl (2.5-4.9); POTASSIUM 3.8 mmol/L (3.5-5.1); SODIUM 139 mmol/L (135-144)
[2017-12-22] MEDS: ALBUTEROL/IPRATROPIUM (NEB) 3 ML AMP HHN ×3 (08:00→20:00)
[2017-12-22] MEDS: SUCRALFATE (100 MG/ML) 10ML CUP PO ×5 (09:00→21:00)
[2017-12-22] MEDS: BUDESONIDE (NEB) 0.5MG/2ML AMP HHN ×2 (09:00→20:00)
[2017-12-22] MEDS: ASPIRIN (EC) 81 MG TAB PO ×2 (09:00→09:15)
[2017-12-22] MEDS: HEPARIN 5,000 UNIT/0.5 ML VIAL SC ×2 (09:14→21:15)
[2017-12-22] MEDS: METOCLOPRAMIDE 5 MG TAB PO ×2 (09:15→17:11)
[2017-12-22] MEDS: LETROZOLE 2.5 MG TAB PO (09:15)
[2017-12-22] MEDS: LACTOBACILLUS RHAMNOSUS CAP PO ×2 (09:15→21:05)
[2017-12-22] MEDS: ANASTROZOLE 1 MG TAB PO (09:15)
[2017-12-22] MEDS: AMLODIPINE 5 MG TAB PO (09:16)
[2017-12-22] MEDS: BALSAM PERU/CASTOR OIL 60 GM TUBE TOP ×2 (09:16→21:08)
[2017-12-22] MEDS: MONTELUKAST 10 MG TAB PO (21:05)
[2017-12-22] MEDS: HYDROmorphONE 2 MG TAB PO (21:23)
[2017-12-22] MEDS: HYDROmorphONE 0.5 MG/0.5 ML SYG IV (22:42)
[2017-12-23] MEDS: PANTOPRAZOLE (EC) 40 MG TAB PO (06:00)
[2017-12-23] MEDS: LEVOTHYROXINE 100 MCG TAB PO (06:11)
[2017-12-23] MEDS: METOCLOPRAMIDE 5 MG TAB PO (07:30)
[2017-12-23] MEDS: ALBUTEROL/IPRATROPIUM (NEB) 3 ML AMP HHN ×2 (08:00→14:00)
[2017-12-23] MEDS: BUDESONIDE (NEB) 0.5MG/2ML AMP HHN (08:30)
[2017-12-23] MEDS: AMLODIPINE 5 MG TAB PO (09:00)
[2017-12-23] MEDS: ASPIRIN (EC) 81 MG TAB PO (09:00)
[2017-12-23] MEDS: SUCRALFATE (100 MG/ML) 10ML CUP PO ×3 (09:00→16:40)
[2017-12-23] MEDS: LACTOBACILLUS RHAMNOSUS CAP PO (09:23)
[2017-12-23] MEDS: LETROZOLE 2.5 MG TAB PO (09:26)
[2017-12-23] MEDS: ANASTROZOLE 1 MG TAB PO (09:27)
[2017-12-23] MEDS: BALSAM PERU/CASTOR OIL 60 GM TUBE TOP (09:27)
[2017-12-23] MEDS: HEPARIN 5,000 UNIT/0.5 ML VIAL SC (09:27)
[2017-12-23] MEDS: HYDROmorphONE 2 MG TAB PO (16:39)
== END 2017-12-23 16:54 | DRG 758 ==
LOC: E/R 13:33 → PP2 16:11
PROC: 0DB98ZX Excision of Duodenum, Via Natural or Artificial Opening Endoscopic, Diagnostic (ICD-10-PCS; principal; 2017-12-16 15:50)
PROC: 0DB68ZX Excision of Stomach, Via Natural or Artificial Opening Endoscopic, Diagnostic (ICD-10-PCS; 2017-12-16 15:50)
DX: B37.49 Other urogenital candidiasis (principal); N17.9 Acute kidney failure, unspecified; C79.9 Secondary malignant neoplasm of unspecified site; I10 Essential (primary) hypertension; I69.311 Memory deficit following cerebral infarction; C50.911 Malignant neoplasm of unspecified site of right female breast; E66.01 Morbid (severe) obesity due to excess calories; Z68.39 Body mass index [BMI] 39.0-39.9, adult; K76.0 Fatty (change of) liver, not elsewhere classified; I89.0 Lymphedema, not elsewhere classified; R33.9 Retention of urine, unspecified; N28.1 Cyst of kidney, acquired; Z85.038 Personal history of other malignant neoplasm of large intestine; Z92.21 Personal history of antineoplastic chemotherapy; Z90.49 Acquired absence of other specified parts of digestive tract; K29.70 Gastritis, unspecified, without bleeding; K44.9 Diaphragmatic hernia without obstruction or gangrene; K20.9 Esophagitis, unspecified; K31.84 Gastroparesis
CPT/HCPCS: 71045; 74176; 76705; 76775; 78264; 80053; 80061; 80069; 81001; 83036; 83605; 83690; 83735; 83880; 84080; 84100; 84439; 84443; 84484; 85025; 85610; 85730; 87040; 87086; 88305; 88312; 93005; 93306; 93970; 94640; 94664; 97110; 97162; 97530; 99285-25